=== PATIENT | female | born 1980 | race American Indian/Alaskan Native ===

== ENCOUNTER 2017-07-19 06:04 | Day surgery (SDC) | payer BC, MEDICAID, OTHER ==
[~2017-07-19 06:04] MED LIST: Dextrose 5%-Lactated Ringers 1,000 ML IV SCH
[2017-07-19] MEDS ORDERED: Dextrose 5%-Lactated Ringers 1,000 ML IV SCH (06:30)
[2017-07-19] MEDS ORDERED: Glycopyrrolate 0.2 MG/ML 2 ML SDV IVPUSH ONE (07:00)
[2017-07-19] MEDS ORDERED: fentaNYL 100 MCG/2 ML SDV ONE (07:02)
[2017-07-19] MEDS ORDERED: Midazolam 1 MG/ML 2 ML SDV ONE (07:02)
[2017-07-19] MEDS ORDERED: Propofol 200 MG/20 ML SDV ONE (07:03)
[2017-07-19 08:27] VITALS: BP 137/86
--- NOTE | 2017-07-22 09:27 | OR ---
DATE OF PROCEDURE: 07/19/2017 PREOPERATIVE DIAGNOSIS: Weight regain, status post Anika-en-Y gastric bypass. POSTOPERATIVE DIAGNOSES: 1. Enlarged gastric pouch along with dilated gastrojejunostomy. 2. Marginal ulcer. OPERATIVE PROCEDURE: Upper GI endoscopy with biopsies of gastric pouch for CLOtest. ANESTHESIA: IV sedation. INDICATION FOR PROCEDURE: This is a 37-year-old, status post Anika-en-Y gastric bypass in 2011. Initially, she did well with her weight coming down quite significantly. Recently, she has had significant weight regain and feels that she does not have much in the way of restriction when eating. Her recent history includes a total proctocolectomy with ileoanal anastomosis done for ulcerative colitis at the [facility]. She presently has an ileostomy, done at that procedure, which is apparently scheduled to be taken down probably some time in August. She is going to have a device placed to improve her anal sphincter tone in the interim. The patient is interested in seeing if there is something that might be done in terms of her gastric bypass from a revisional standpoint. The plan is to proceed with upper GI endoscopy with biopsies as indicated. Potential risks including bleeding and perforation were discussed, and the patient wishes to proceed. DESCRIPTION OF PROCEDURE: The patient was taken to the operating room and placed in a left lateral decubitus position. IV sedation was administered, after which the upper GI endoscope was passed orally through the length of the esophagus and into the gastric pouch, from there, through the gastrojejunostomy roughly 30 cm into the Anika limb. Findings included normal hypopharynx, larynx, upper esophageal sphincter, and esophageal body. At the EG junction, there was some mild inflammation, and the gastric pouch was then visualized. This was noted to be quite enlarged and measured 8 cm from the gastrojejunostomy to the gastroesophageal mucosal junction and from a transverse dimension appeared to be somewhat larger. There was also marked enlargement of the gastrojejunostomy. This was estimated to be around 4 cm. At the gastrojejunostomy, there was also marginal ulcer present extending roughly 1 cm away from the gastrojejunostomy anastomotic line onto the jejunum. This was covered with some fibrinous exudate, and no active bleeding or stricturing was identified. Biopsies were obtained from the gastric pouch and sent for CLOtest for H. pylori. Minimal bleeding from the biopsy sites was seen, and the procedure was then concluded. The patient would appear to be a reasonable candidate for revision procedure. This will also take away the tendency for the marginal ulcer in the event that most of the remaining gastric pouch is resected. Most of the revisional procedures we do also involve altering the Anika limb into the pancreatic limb lengths to increase the degree of malabsorption. With the patient having a total proctocolectomy and ileocolic anastomosis, we would not do anything with the small bowel, so as to avoid problems with too much in the way of loose bowel movements, but would expect to see significant improvement by reduction of gastric pouch and size of the gastrojejunostomy. The latter would need to be done as an open procedure. This could be done concurrently with takedown of the ileostomy. The patient is going to be changing her insurance, and her insurance company will be contacted regarding the revisional procedure once that new policy has been established. We will await the CLOtest, and should that be positive, we will contact regarding H. pylori treatment. Otherwise, we will have her move her omeprazole 40 mg daily to b.i.d., to try to reduce acid production and heal the marginal ulcer. Esequiel Rabago MD /[id number]
== END 2017-07-19 08:45 | disposition home or self-care (01) ==
LOC: JP.SDS 06:04
PROVIDERS: ATTEND Surgery
DX: K95.89 Other complications of other bariatric procedure (principal); K28.9 Gastrojejunal ulcer, unspecified as acute or chronic, without hemorrhage or perforation; K31.89 Other diseases of stomach and duodenum; I10 Essential (primary) hypertension; Z90.49 Acquired absence of other specified parts of digestive tract; Z88.0 Allergy status to penicillin; Z88.8 Allergy status to other drugs, medicaments and biological substances; Z91.013 Allergy to seafood
CPT/HCPCS: 43239; 87081; J2250; J2704; J3010; J7042; J3490